=== PATIENT | male | born 1945 | race Caucasian/White ===

== ENCOUNTER → 2017-02-28 | Outpatient (CLI) | payer MEDICARE ==
--- NOTE | 2017-03-05 13:39 | RADONC ---
RADIATION ONCOLOGY CONSULTATION NOTE DATE: 02/28/2017 CHART NUMBER: [id number]. DIAGNOSIS: Cutaneous basal cell carcinoma. STAGE: I, T1N0M0. ECOG PERFORMANCE STATUS: Zero. CONSULTATION NOTE: Mr. De León is a very pleasant, 71-year-old white male with the diagnosis what appears to be a stage I, T1N0M0 basal cell carcinoma, nodular and infiltrative types of his right distal pretibial region who is presenting to us today status post excision for consideration of postoperative radiation therapy in attempt to increase the likelihood of achieving local control. HISTORY OF PRESENT ILLNESS: The patient was in his usual state of health but recently noticed two small lesions close to each other over the pretibial region of his right leg. On 01/23/2017, the patient underwent resection of both areas. Pathology revealed a basal cell carcinoma, nodular an infiltrating type which extended into the deep tissue managed. The skin specimen measured 0.6 cm x 0.5 cm x 0.2 cm. The second site showed the top of an atypical cystic squamous proliferation. The lesion extended to the deep tissue margin. There was concern for a keratoacanthoma. No actual malignancy was seen. The patient has done well since surgery and is now presenting for discussion of postoperative radiation therapy in the likelihood of achieving local control. PAST MEDICAL HISTORY: The patient's past medical history is positive for urinary tract infections, heart disease, thyroid problems, aortic valve replacement, open heart surgery, and hepatitis. ALLERGIES: The patient has NO KNOWN DRUG ALLERGIES. SOCIAL HISTORY: The patient had smoked half-a-pack of cigarettes per day for over 10 years. He quit 30 years or so ago. He drinks alcohol socially. FAMILY HISTORY: The patient's family history is negative for skin cancers or other malignancies. REVIEW OF SYSTEMS: The patient's review of systems is positive for some slowly increasing weight gain. He has some hearing loss as well as his present skin complaints. It is otherwise noncontributory. Denies nausea, vomiting, fevers, chills, night sweats, diplopia, headaches, anxiety or depression, anorexia, weight loss, visual disturbances, chest pain, urinary or bowel difficulties, bone pain, or neurological problems. PHYSICAL EXAMINATION: The patient is a well-developed, well-nourished male in no acute distress. HEENT exam is normocephalic, atraumatic. Extraocular movements are intact. There is no palpable cervical, supraclavicular, infraclavicular, axillary, or inguinal lymphadenopathy present. Lungs are clear to auscultation and percussion. Heart has a regular rate and rhythm. Abdomen is benign with no hepatosplenomegaly, masses, or tenderness. Rectal examination reveals a normal anal sphincter tone. Skeletal examination reveals no tenderness to pressure or percussion of the bony skeleton. Extremities reveal no clubbing, cyanosis, or edema. Neurologic exam is grossly intact, as is the remainder of the physical examination. Examination of the patient's skin shows two small surgical scars present over his right pretibial area consistent with his above history. ASSESSMENT: Clearly the patient is a candidate for postoperative radiation therapy and I so informed him. I have discussed with the patient in detail the potential benefits as well as possible acute and chronic sequelae of external beam radiation therapy. We have discussed logistics of treatment planning, simulation and subsequent fractionated daily radiation treatments. I have scheduled the patient for the next available simulation slot and radiation treatments will begin subsequently. Thank you for allowing us to participate in the care of this very pleasant gentleman. If I could be of any further assistance or provide you with any information, please feel free to contact me at anytime. As always, warm regards. cc: Aric Cornelius MD cc: MD Eddie Blank MD Anthony Scalzo, MD
== END ==
LOC: M ONCR 13:05
PROVIDERS: ATTEND Radiology Radiation Oncology
DX: C44.711 Basal cell carcinoma of skin of unspecified lower limb, including hip (principal)

== ENCOUNTER 2017-03-18 14:07 | Outpatient (RCR) | payer MEDICARE | END 2017-04-10 | LOC: M ONCR 14:07 | DX: C44.702 Unspecified malignant neoplasm of skin of right lower limb, including hip (principal) | CPT/HCPCS: 77300 ==

== ENCOUNTER 2017-04-11 11:49 | Outpatient (RCR) | payer MEDICARE | END 2017-05-08 | LOC: M ONCR 11:49 | DX: C44.702 Unspecified malignant neoplasm of skin of right lower limb, including hip (principal) | CPT/HCPCS: 77336 ==

== ENCOUNTER → 2017-07-04 | Outpatient (CLI) | payer MEDICARE | LOC: M ONCR 09:14 | DX: C44.702 Unspecified malignant neoplasm of skin of right lower limb, including hip (principal) ==

== ENCOUNTER → 2018-07-07 | Outpatient (REF) | payer MEDICARE ==
[2018-07-07 11:56] LABS: BASO % 0.6 % (0.0-1.0); EOS # 0.2 10^3/uL (0.0-0.50); EOS % 3.5 % (0.0-3.0); HEMATOCRIT 37.2 % (42.0-52.0); HEMOGLOBIN 12.4 g/dl (13.5-17.5); LYMPH % 19.8 % (24.0-44.0); MEAN CORPUSCULAR HEMOGLOBIN 31.2 pg (27.0-33.0); MEAN CORPUSCULAR HGB CONC 33.3 g/dl (32.0-36.5); MEAN CORPUSCULAR VOLUME 93.5 fl (80.0-96.0); MONO # 0.5 10^3/uL (0.0-0.8); MONO % 10.1 % (0.0-5.0); NEUTROPHILS # 3.4 10^3/uL (1.8-7.7); NEUTROPHILS % 65.6 % (36.0-66.0); PLATELET COUNT, AUTOMATED 152 10^3/uL (150-450); RED BLOOD COUNT 3.98 10^6/uL (4.30-6.10); WHITE BLOOD COUNT 5.2 10^3/uL (4.0-10.0)
[2018-07-07 12:07] LABS: ALBUMIN 3.9 GM/DL (3.2-5.2); ALT/SGPT 102 U/L (12-78); BILIRUBIN,DIRECT 0.1 MG/DL (0.0-0.2); BILIRUBIN,TOTAL 0.4 MG/DL (0.2-1.0); CREATININE FOR GFR 1.16 MG/DL (0.70-1.30); GLOMERULAR FILTRATION RATE > 60.0 (>42); TOTAL PROTEIN 7.3 GM/DL (6.4-8.2)
== END ==
LOC: M SHH 11:14
PROVIDERS: ATTEND Internal Medicine Infectious Disease
DX: R35.0 Frequency of micturition (principal)

== ENCOUNTER → 2018-07-14 | Outpatient (REF) | payer MEDICARE ==
[2018-07-14 12:56] LABS: APPEARANCE, URINE CLEAR (CLEAR); BACTERIA, URINE AUTO NEGATIVE (NEGATIVE); BILIRUBIN, URINE AUTO NEGATIVE (NEGATIVE); BLOOD, URINE BLOOD NEGATIVE (NEGATIVE); COLOR, URINE YELLOW (YELLOW); GLUCOSE, URINE (UA) AUTO NEGATIVE (NEGATIVE); KETONE, URINE AUTO NEGATIVE (NEGATIVE); LEUKOCYTE ESTERASE, URINE AUTO NEGATIVE (NEGATIVE); NITRITE, URINE AUTO NEGATIVE (NEGATIVE); PROTEIN, URINE AUTO NEGATIVE (NEGATIVE); RBC, URINE AUTO 0 /HPF (0-3); SPECIFIC GRAVITY URINE AUTO 1.008 (1.002-1.035); SQUAMOUS EPITHELIAL CELL UR AU 0 /HPF (0-6); UROBILINOGEN, URINE AUTO 0.2 mg/dL (0.0-2.0); WBC, URINE AUTO 0 /HPF (0-3)
[2018-07-14 12:56] LABS: BASO % 0.7 % (0.0-1.0); EOS # 0.2 10^3/uL (0.0-0.50); EOS % 3.3 % (0.0-3.0); HEMATOCRIT 39.7 % (42.0-52.0); HEMOGLOBIN 13.6 g/dl (13.5-17.5); LYMPH # 1.4 10^3/uL (1.5-4.5); LYMPH % 23.8 % (24.0-44.0); MEAN CORPUSCULAR HEMOGLOBIN 31.6 pg (27.0-33.0); MEAN CORPUSCULAR HGB CONC 34.3 g/dl (32.0-36.5); MEAN CORPUSCULAR VOLUME 92.1 fl (80.0-96.0); MONO # 0.7 10^3/uL (0.0-0.8); MONO % 11.3 % (0.0-5.0); NEUTROPHILS # 3.5 10^3/uL (1.8-7.7); NEUTROPHILS % 60.6 % (36.0-66.0); PLATELET COUNT, AUTOMATED 185 10^3/uL (150-450); RED BLOOD COUNT 4.31 10^6/uL (4.30-6.10); WHITE BLOOD COUNT 5.8 10^3/uL (4.0-10.0)
[2018-07-14 13:20] LABS: ALBUMIN 4.4 GM/DL (3.2-5.2); ALT/SGPT 61 U/L (12-78); BILIRUBIN,DIRECT 0.2 MG/DL (0.0-0.2); BILIRUBIN,TOTAL 0.6 MG/DL (0.2-1.0); CREATININE FOR GFR 1.15 MG/DL (0.70-1.30); GLOMERULAR FILTRATION RATE > 60.0 (>42); TOTAL PROTEIN 8.2 GM/DL (6.4-8.2)
== END ==
LOC: M SHH 12:09
PROVIDERS: ATTEND Internal Medicine Infectious Disease
DX: N41.1 Chronic prostatitis (principal); N39.0 Urinary tract infection, site not specified; B96.89 Other specified bacterial agents as the cause of diseases classified elsewhere

== ENCOUNTER → 2018-07-21 | Outpatient (REF) | payer MEDICARE ==
[2018-07-21 15:05] LABS: BASO % 0.6 % (0.0-1.0); EOS # 0.2 10^3/uL (0.0-0.50); EOS % 3.3 % (0.0-3.0); HEMATOCRIT 35.5 % (42.0-52.0); HEMOGLOBIN 12.2 g/dl (13.5-17.5); LYMPH # 1.1 10^3/uL (1.5-4.5); LYMPH % 21.5 % (24.0-44.0); MEAN CORPUSCULAR HGB CONC 34.4 g/dl (32.0-36.5); MEAN CORPUSCULAR VOLUME 90.1 fl (80.0-96.0); MONO # 0.6 10^3/uL (0.0-0.8); MONO % 10.9 % (0.0-5.0); NEUTROPHILS # 3.3 10^3/uL (1.8-7.7); NEUTROPHILS % 63.5 % (36.0-66.0); PLATELET COUNT, AUTOMATED 187 10^3/uL (150-450); RED BLOOD COUNT 3.94 10^6/uL (4.30-6.10); WHITE BLOOD COUNT 5.2 10^3/uL (4.0-10.0)
[2018-07-21 15:37] LABS: ALBUMIN 3.8 GM/DL (3.2-5.2); ALT/SGPT 40 U/L (12-78); BILIRUBIN,DIRECT 0.1 MG/DL (0.0-0.2); BILIRUBIN,TOTAL 0.5 MG/DL (0.2-1.0); CREATININE FOR GFR 1.22 MG/DL (0.70-1.30); GLOMERULAR FILTRATION RATE > 60.0 (>42); TOTAL PROTEIN 7.9 GM/DL (6.4-8.2)
== END ==
LOC: M SHH 14:53
PROVIDERS: ATTEND Internal Medicine Infectious Disease
DX: N41.0 Acute prostatitis (principal)

== ENCOUNTER → 2018-07-28 | Outpatient (REF) | payer MEDICARE ==
[2018-07-28 14:52] LABS: BASO % 0.7 % (0.0-1.0); EOS # 0.2 10^3/uL (0.0-0.50); EOS % 3.5 % (0.0-3.0); HEMATOCRIT 36.6 % (42.0-52.0); HEMOGLOBIN 12.5 g/dl (13.5-17.5); LYMPH # 1.1 10^3/uL (1.5-4.5); LYMPH % 20.9 % (24.0-44.0); MEAN CORPUSCULAR HGB CONC 34.2 g/dl (32.0-36.5); MEAN CORPUSCULAR VOLUME 90.8 fl (80.0-96.0); MONO # 0.5 10^3/uL (0.0-0.8); MONO % 9.5 % (0.0-5.0); NEUTROPHILS # 3.5 10^3/uL (1.8-7.7); NEUTROPHILS % 65.2 % (36.0-66.0); PLATELET COUNT, AUTOMATED 185 10^3/uL (150-450); RED BLOOD COUNT 4.03 10^6/uL (4.30-6.10); WHITE BLOOD COUNT 5.4 10^3/uL (4.0-10.0)
[2018-07-28 18:42] LABS: ALT/SGPT 36 U/L (12-78); BILIRUBIN,DIRECT 0.1 MG/DL (0.0-0.2); BILIRUBIN,TOTAL 0.5 MG/DL (0.2-1.0); CREATININE FOR GFR 1.12 MG/DL (0.70-1.30); GLOMERULAR FILTRATION RATE > 60.0 (>42); TOTAL PROTEIN 7.6 GM/DL (6.4-8.2)
== END ==
LOC: M LAB REF 14:30
PROVIDERS: ATTEND Internal Medicine Infectious Disease
DX: Z51.81 Encounter for therapeutic drug level monitoring (principal); Z79.2 Long term (current) use of antibiotics

== ENCOUNTER → 2018-08-05 | Outpatient (REF) | payer MEDICARE ==
[2018-08-05 19:38] LABS: ALT/SGPT 40 U/L (12-78); BILIRUBIN,DIRECT 0.1 MG/DL (0.0-0.2); BILIRUBIN,TOTAL 0.6 MG/DL (0.2-1.0); GLOMERULAR FILTRATION RATE > 60.0 (>42); TOTAL PROTEIN 8.1 GM/DL (6.4-8.2)
[2018-08-05 20:08] LABS: BASO % 0.4 % (0.0-1.0); EOS # 0.2 10^3/uL (0.0-0.50); EOS % 4.1 % (0.0-3.0); HEMATOCRIT 39.3 % (42.0-52.0); HEMOGLOBIN 13.3 g/dl (13.5-17.5); LYMPH # 1.1 10^3/uL (1.5-4.5); LYMPH % 20.5 % (24.0-44.0); MEAN CORPUSCULAR HGB CONC 33.8 g/dl (32.0-36.5); MEAN CORPUSCULAR VOLUME 94.5 fl (80.0-96.0); MONO # 0.5 10^3/uL (0.0-0.8); MONO % 10.6 % (0.0-5.0); NEUTROPHILS # 3.3 10^3/uL (1.8-7.7); PLATELET COUNT, AUTOMATED 164 10^3/uL (150-450); RED BLOOD COUNT 4.16 10^6/uL (4.30-6.10); WHITE BLOOD COUNT 5.1 10^3/uL (4.0-10.0)
== END ==
LOC: M SHH 18:10
PROVIDERS: ATTEND Internal Medicine Infectious Disease
DX: N41.1 Chronic prostatitis (principal)

== ENCOUNTER → 2018-08-11 | Outpatient (CLI) | payer MEDICARE ==
[2018-08-11 09:55] LABS: BASO % 0.4 % (0.0-1.0); EOS # 0.2 10^3/uL (0.0-0.50); EOS % 3.5 % (0.0-3.0); HEMATOCRIT 37.3 % (42.0-52.0); HEMOGLOBIN 12.9 g/dl (13.5-17.5); LYMPH % 19.6 % (24.0-44.0); MEAN CORPUSCULAR HGB CONC 34.6 g/dl (32.0-36.5); MEAN CORPUSCULAR VOLUME 92.6 fl (80.0-96.0); MONO # 0.5 10^3/uL (0.0-0.8); MONO % 9.6 % (0.0-5.0); NEUTROPHILS # 3.5 10^3/uL (1.8-7.7); NEUTROPHILS % 66.7 % (36.0-66.0); PLATELET COUNT, AUTOMATED 153 10^3/uL (150-450); RED BLOOD COUNT 4.03 10^6/uL (4.30-6.10); WHITE BLOOD COUNT 5.2 10^3/uL (4.0-10.0)
[2018-08-11 10:28] LABS: ALBUMIN 3.9 GM/DL (3.2-5.2); ALT/SGPT 34 U/L (12-78); BILIRUBIN,DIRECT 0.1 MG/DL (0.0-0.2); BILIRUBIN,TOTAL 0.6 MG/DL (0.2-1.0); CREATININE FOR GFR 1.12 MG/DL (0.70-1.30); GLOMERULAR FILTRATION RATE > 60.0 (>42); TOTAL PROTEIN 7.7 GM/DL (6.4-8.2)
== END ==
LOC: M LAB 08:40
PROVIDERS: ATTEND Internal Medicine Infectious Disease
DX: N41.0 Acute prostatitis (principal)

== ENCOUNTER → 2018-08-11 | Outpatient (REF) | payer MEDICARE | LOC: M LAB REF 15:37 | DX: N41.1 Chronic prostatitis (principal) ==

== ENCOUNTER → 2018-08-11 | Outpatient (REF) | payer MEDICARE ==
[2018-08-11 16:14] LABS: INR 3.16; PROTHROMBIN TIME 33.2 SECONDS (12.1-14.4)
== END ==
LOC: M LAB REF 15:49
PROVIDERS: ATTEND Internal Medicine Interventional Cardiology
DX: Z79.01 Long term (current) use of anticoagulants (principal)

== ENCOUNTER → 2018-08-13 | Outpatient (CLI) | payer MEDICARE ==
[2018-08-13 08:51] LABS: INR 3.17; PROTHROMBIN TIME 33.2 SECONDS (12.1-14.4)
== END ==
LOC: M LAB 08:07
PROVIDERS: ATTEND Internal Medicine Interventional Cardiology
DX: Z79.01 Long term (current) use of anticoagulants (principal)

== ENCOUNTER → 2018-09-22 | Outpatient (CLI) | payer MEDICARE ==
[~2018-09-22] MED LIST: ACET25TA12 PO; ALLE1TAB23 PO; DICL500C PO; FINA5TAB2 PO; GLUCTAB6 PO; LEVO200T4 PO; LEVO25TA5 PO; METO1TAB7 PO; NITR100C2 PO; TAMS1CAP17 PO; VITMTA PO; WARF-23 PO
[2018-09-22 09:15] LABS: APPEARANCE, URINE CLEAR (CLEAR); BACTERIA, URINE AUTO NEGATIVE (NEGATIVE); BILIRUBIN, URINE AUTO NEGATIVE (NEGATIVE); BLOOD, URINE BLOOD NEGATIVE (NEGATIVE); COLOR, URINE YELLOW (YELLOW); GLUCOSE, URINE (UA) AUTO NEGATIVE (NEGATIVE); KETONE, URINE AUTO NEGATIVE (NEGATIVE); LEUKOCYTE ESTERASE, URINE AUTO NEGATIVE (NEGATIVE); NITRITE, URINE AUTO NEGATIVE (NEGATIVE); PROTEIN, URINE AUTO NEGATIVE (NEGATIVE); RBC, URINE AUTO 0 /HPF (0-3); SPECIFIC GRAVITY URINE AUTO 1.005 (1.002-1.035); SQUAMOUS EPITHELIAL CELL UR AU 0 /HPF (0-6); UROBILINOGEN, URINE AUTO 0.2 mg/dL (0.0-2.0); WBC, URINE AUTO 1 /HPF (0-3)
== END ==
LOC: M LAB 08:15
PROVIDERS: ATTEND Internal Medicine Infectious Disease
DX: N41.1 Chronic prostatitis (principal)

== ENCOUNTER → 2018-11-12 | Outpatient (CLI) | payer MEDICARE ==
[2018-11-12 14:09] LABS: APPEARANCE, URINE CLEAR (CLEAR); BACTERIA, URINE AUTO NEGATIVE (NEGATIVE); BILIRUBIN, URINE AUTO NEGATIVE (NEGATIVE); BLOOD, URINE BLOOD NEGATIVE (NEGATIVE); COLOR, URINE YELLOW (YELLOW); GLUCOSE, URINE (UA) AUTO NEGATIVE (NEGATIVE); KETONE, URINE AUTO NEGATIVE (NEGATIVE); LEUKOCYTE ESTERASE, URINE AUTO NEGATIVE (NEGATIVE); NITRITE, URINE AUTO NEGATIVE (NEGATIVE); PROTEIN, URINE AUTO NEGATIVE (NEGATIVE); RBC, URINE AUTO 1 /HPF (0-3); SPECIFIC GRAVITY URINE AUTO 1.011 (1.002-1.035); SQUAMOUS EPITHELIAL CELL UR AU 1 /HPF (0-6); UROBILINOGEN, URINE AUTO 0.2 mg/dL (0.0-2.0); WBC, URINE AUTO 1 /HPF (0-3)
== END ==
LOC: M LAB 13:16
PROVIDERS: ATTEND Internal Medicine Infectious Disease
DX: N41.1 Chronic prostatitis (principal)

== ENCOUNTER → 2018-12-15 | Outpatient (CLI) | payer MEDICARE ==
[2018-12-15 11:59] LABS: APPEARANCE, URINE CLEAR (CLEAR); BACTERIA, URINE AUTO NEGATIVE (NEGATIVE); BILIRUBIN, URINE AUTO NEGATIVE (NEGATIVE); BLOOD, URINE BLOOD NEGATIVE (NEGATIVE); COLOR, URINE YELLOW (YELLOW); GLUCOSE, URINE (UA) AUTO NEGATIVE (NEGATIVE); KETONE, URINE AUTO NEGATIVE (NEGATIVE); LEUKOCYTE ESTERASE, URINE AUTO NEGATIVE (NEGATIVE); MUCUS, URINE SMALL (NEGATIVE); NITRITE, URINE AUTO NEGATIVE (NEGATIVE); PROTEIN, URINE AUTO NEGATIVE (NEGATIVE); RBC, URINE AUTO 1 /HPF (0-3); SPECIFIC GRAVITY URINE AUTO 1.018 (1.002-1.035); SQUAMOUS EPITHELIAL CELL UR AU 0 /HPF (0-6); UROBILINOGEN, URINE AUTO 0.2 mg/dL (0.0-2.0); WBC, URINE AUTO 2 /HPF (0-3)
== END ==
LOC: M LAB 10:50
PROVIDERS: ATTEND Internal Medicine Infectious Disease
DX: N41.1 Chronic prostatitis (principal)

== ENCOUNTER 2019-02-25 13:45 | Inpatient (IN) | payer MEDICARE ==
[~2019-02-25] VITALS: Ht 193 cm; Wt 105.0 kg
[2019-02-25] MEDS ORDERED: LEVO25TA5 PO (14:01)
[2019-02-25] MEDS ORDERED: FINA5TAB2 PO (14:01)
[2019-02-25] MEDS ORDERED: METO1TAB7 PO (14:01)
[2019-02-25] MEDS ORDERED: WARF-23 PO ×2 (14:01→18:08)
[2019-02-25] MEDS ORDERED: DICL500C PO (14:01)
[2019-02-25] MEDS ORDERED: LEVO200T4 PO (14:01)
[2019-02-25] MEDS ORDERED: TAMS1CAP17 PO (14:01)
[2019-02-25 14:53] LABS: GLUCOSE, URINE (UA) MANUAL OBSCURED mg/dL (NEGATIVE); KETONE, URINE MANUAL OBSCURED mg/dL (NEGATIVE)
[2019-02-25 14:54] LABS: BILIRUBIN, URINE MANUAL OBSCURED (NEGATIVE); UROBILINOGEN, URINE MANUAL OBSCURED mg/dl (NORMAL)
[2019-02-25 14:55] LABS: HEMATOCRIT 36.1 % (42.0-52.0); HEMOGLOBIN 12.1 g/dl (13.5-17.5); MEAN CORPUSCULAR HEMOGLOBIN 31.5 pg (27.0-33.0); MEAN CORPUSCULAR HGB CONC 33.5 g/dl (32.0-36.5); PLATELET COUNT, AUTOMATED 173 10^3/uL (150-450); RED BLOOD COUNT 3.84 10^6/uL (4.30-6.10)
[2019-02-25 14:57] LABS: RBC, URINE TNTC /hpf (0-3)
[2019-02-25] MEDS ORDERED: MORPHINE 4 MG/ML 1ML VIAL/SYRINGE (J2270) IM ONE (15:00)
[2019-02-25] MEDS ORDERED: ONDANSETRON 4 MG ORAL DISINTEGRATING TAB (Q0162 PER 1MG) PO ONE (15:00)
[2019-02-25 15:07] LABS: INR 2.75
[2019-02-25 15:20] LABS: CREATININE FOR GFR 1.28 MG/DL (0.70-1.30); GLOMERULAR FILTRATION RATE 58.8 (>42); POTASSIUM SERUM 4.2 MEQ/L (3.5-5.1)
[2019-02-25] MEDS ORDERED: ISOVUE-370 76% 100ML VIAL (Q9967) As Ordered ONE (17:35)
--- NOTE | 2019-02-25 17:38 | SMCUROLCON ---
Urology Consultation General Date of Consultation 02/25/19 Reason For Consultation This patient is seen for Blood In Urine. History of Present Illness The patient is a 73 y/o M w/ a PMH significant for mechanical heart valve replacement (chronically on coumadin), pacemaker, hypothyroidism, BPH (s/p TURP several years ago), recurrent UTIs, and gross hematuria, presenting to the ER w/ gross hematuria x 1 day and inability to void. The patient notes that he has had a few episodes of hematuria previously, the most recent was 2 wks ago. That lasted for a few hours and stopped. He has been followed by urology at [facility] urology in [place] and at [facility]. He notes that his last cystoscopy was about 1 year ago. He also notes that for a previous episode of gross hematuria he was taken go the OR in [place] to cauterize inside the bladder. He denies a hx of bladder tumors or kidney stones. He has been followed mainly for obstructive urinary symptoms and UTIs recently and noted that we was scheduled for a HOLEP at [facility] several months ago but this was cancelled as he had not been off of his coumadin long enough. He notes that the surgery was not rescheduled. On presentation to the ER he had a significant amount of suprapubic discomfort. This improved w/ catheter placement. He is a former smoker, but notes that he only smoked a very small amount several years ago. He has no prior history of pelvic radiation. He notes that when he had UTIs in the past, he usually had no symptoms. His last dose of coumadin was yesterday evening. Past Medical History Medical History see HPI Surgical Hstory see HPI Allergies Allergies: Coded Allergies: No Known Allergies (Unverified , 02/25/19) Review of Systems General: Reports: Normal Appetite; Denies: Fatigue, Malaise Constitutional: Denies: Fever, Chills, Sweats, Weakness, Malaise Pulmonary: Denies: Dyspnea, Cough Cardiovascular: Denies Chest Pain, Denies Palpitations Gastrointestinal: Denies: Nausea, Vomiting, Abdominal Pain Genitourinary: Reports: Hematuria, Retention Musculoskeletal: Denies: Neck Pain, Back Pain Neurological: Denies: Weakness, Numbness, Incoordination, Change in Speech Psych: Reports: Mood Normal; Denies: Anxiety, Depression Physical Examination General Exam: Alert, Cooperative, No Acute Distress Chest Exam: Normal air movement Heart Exam: Rate Normal Abdomen Exam: Soft Male Exam 3-way catheter in place, draining dark red blood Skin Exam: Nl turgor and temperature Neuro Exam: Normal Speech Psych Exam: Mental status NL, Mood NL Vital Signs/I&O Vital Signs Date Time Temp Pulse Resp B/P (MAP) Pulse Ox O2 Delivery O2 Flow Rate FiO2 02/25/19 15:52 02/25/19 15:14 18 99 Room Air 02/25/19 13:46 97.8 76 Laboratory Data 24H Labs Laboratory Tests 2 02/25/19 14:32: Nucleated Red Blood Cells % (auto) 0.0, Prothrombin Time 29.0H, Prothromb Time International Ratio 2.75, Anion Gap 5L, Glomerular Filtration Rate 58.8, Calcium Level 9.0 02/25/19 14:33: Urine Color (ELIZABETH) REDH, Urine Appearance (ELIZABETH) TURBIDH, Urine pH (ELIZABETH) OBSCUREDH, Urine Specific [place] (ELIZABETH) 1.022, Urine Protein OBSCUREDH, Bedside Urine Glucose (UA) OBSCUREDH, Bedside Urine Ketones (LAB) OBSCUREDH, Bedside Urine Blood POSITIVEH, Bedside Urine Nitrite (LAB) OBSCUREDH, Bedside Urine Bilirubin (LAB) OBSCUREDH, Bedside Urine Urobilinogen (LAB) OBSCUREDH, Bedside Urine Leukocyte Esterase (L OBSCUREDH, Urine Sediment Examination UNSPUN, Urine RBC TNTCH, Urine WBC 3-5H, Urine Squamous Epithelial Cells , Urine Bacteria , Urine Hyaline Casts CBC/BMP Laboratory Tests 02/25/19 14:32 Microbiology Microbiology 02/25/19 Urine Culture, Received Pending Assessment This is a 73 y/o M presenting w/ gross hematuria and clot retention. His Hb is at his baseline at 12.1. His INR is 2.75. I manually irrigated his bladder out and got a few small clots out. Once done irrigating, the urine was still light red, indicating that he is likely still actively bleeding. Plan - recommend holding coumadin (the patient called his bog cutter while in the ER and he gave the ok) - patient notes that typically they do not want it held for more than 3 days - continue CBI - make sure that the drip is fast enough so that the urine remains pink or clearer - if concern about a clot obstructing the catheter, turn off CBI and manually irrigate the bladder as needed - send urine for culture and start on empiric abx for now - obtain a CT urogram - please keep patient NPO at midnight for possible OR tomorrow (would take to OR if Hb drops significantly or if the urine does not start clearing up by tomorr ow) GISSELL VASQUEZ MD Feb 25, 2019 17:38
[2019-02-25] MEDS ORDERED: VITMTA PO (18:08)
[2019-02-25] MEDS ORDERED: ALLE1TAB23 PO (18:08)
[2019-02-25] MEDS ORDERED: ACET25TA12 PO (18:08)
[2019-02-25] MEDS ORDERED: GLUCTAB6 PO (18:08)
[2019-02-25 19:12] VITALS: BP 151/81
[2019-02-25] MEDS ORDERED: MORPHINE 4 MG/ML 1ML VIAL/SYRINGE (J2270) IV PRN (19:15)
[2019-02-25] MEDS ORDERED: ONDANSETRON 4MG/2ML VIAL (J2405) IV PRN (19:15)
[2019-02-25] MEDS ORDERED: PIPERACILLIN/TAZOBACTAM SOD 2.25 GM in D5W MINI-BAG PLUS 50 ML IV SCH (19:15)
[2019-02-25] MEDS: METOPROLOL SUCC (TopROL XL) 50MG **XL** TAB PO SCH (21:16)
[2019-02-25] MEDS: PIPERACILLIN/TAZOBACTAM SOD 3.375 GM in D5W MINI-BAG PLUS 50 ML IV SCH (21:16)
[2019-02-25] MEDS: DOCUSATE SODIUM 100 MG CAP PO SCH (21:16)
[2019-02-25] MEDS: DICLOXACILLIN 250 MG CAP PO SCH (23:14)
[2019-02-26] VITALS (8 sets, daily range): BP systolic 125–159; BP diastolic 68–78
[2019-02-26] MEDS ORDERED: HumaLOG INSULIN (NovoLOG) PER UNIT SC SCH
[2019-02-26] MEDS ORDERED: GLUCAGON FOR INJ 1 MG VIAL (J1610) SC PRN (01:00)
[2019-02-26] MEDS ORDERED: GLUCOSE 4 GM CHEW TABLET PO PRN (01:00)
[2019-02-26] MEDS ORDERED: DEXTROSE 50% 50 ML SYRINGE IV PRN (01:00)
[2019-02-26] MEDS: PIPERACILLIN/TAZOBACTAM SOD 3.375 GM in D5W MINI-BAG PLUS 50 ML IV SCH ×4 (01:39→20:33)
[2019-02-26] MEDS: LEVOTHYROXINE 25MCG TABLET (0.025MG) PO SCH (05:30)
[2019-02-26] MEDS: LEVOTHYROXINE 100MCG TABLET (0.1MG) PO SCH (05:30)
[2019-02-26 06:09] LABS: HEMOGLOBIN 10.9 g/dl (13.5-17.5); MEAN CORPUSCULAR HEMOGLOBIN 31.3 pg (27.0-33.0); MEAN CORPUSCULAR VOLUME 94.8 fl (80.0-96.0); PLATELET COUNT, AUTOMATED 163 10^3/uL (150-450); RED BLOOD COUNT 3.48 10^6/uL (4.30-6.10); WHITE BLOOD COUNT 6.7 10^3/uL (4.0-10.0)
[2019-02-26 06:17] LABS: INR 2.39; PROTHROMBIN TIME 25.9 SECONDS (11.8-14.0)
[2019-02-26 06:36] LABS: BLOOD UREA NITROGEN 17 MG/DL (7-18); CALCIUM LEVEL 8.7 MG/DL (8.8-10.2); CARBON DIOXIDE LEVEL 28 MEQ/L (21-32); CHLORIDE LEVEL 105 MEQ/L (98-107); CREATININE FOR GFR 1.23 MG/DL (0.70-1.30); GLOMERULAR FILTRATION RATE > 60.0 (>42); GLUCOSE, FASTING 101 MG/DL (70-100); POTASSIUM SERUM 3.6 MEQ/L (3.5-5.1); SODIUM LEVEL 138 MEQ/L (136-145)
[2019-02-26] MEDS: FINASTERIDE 5 MG TAB PO SCH (08:15)
[2019-02-26] MEDS: DICLOXACILLIN 250 MG CAP PO SCH ×4 (08:15→23:22)
[2019-02-26] MEDS: TAMSULOSIN 0.4 MG CAP PO SCH (08:15)
[2019-02-26] MEDS: DOCUSATE SODIUM 100 MG CAP PO SCH ×2 (08:15→23:22)
[2019-02-26] MEDS: MULTIVITAMINS/MINERALS THERAP 1 TAB PO SCH (08:16)
--- NOTE | 2019-02-26 08:22 | IPNPDOC ---
Subjective Review oF Systems Chief Complaint The patient is a 73-year-old male admitted with a reason for visit of UTI. Events since Last Encounter Patient required manual irrigation several times o/n for clot retention. He feels well. No n/v. No f/c/ns. Objective Physical Examination General Exam: Alert, Cooperative, No Acute Distress Chest Exam: Normal air movement Heart Exam: Positive: Rate Normal ABDOMEN EXAM: Soft Skin Exam: Nl turgor and temperature Neuro Exam: Normal Gait, Normal Speech Psych Exam: Mental status NL, Mood NL Other physical findings 3-way catheter in place w/ irrigation on moderate drip and pink outflow draining Vital Signs/I&O Vital Signs Date Time Temp Pulse Resp B/P (MAP) Pulse Ox O2 Delivery O2 Flow Rate FiO2 02/26/19 06:00 96.8 50 20 159/71 (100) 94 02/25/19 19:12 Room Air I&O- Last 24 Hours up to 6 AM 02/26/19 06:00 Intake Total 3300 ml Output Total 6500 ml Balance -3200 ml Laboratory Data Labs 24H Laboratory Tests 2 02/25/19 14:32: Nucleated Red Blood Cells % (auto) 0.0, Prothrombin Time 29.0H, Prothromb Time International Ratio 2.75, Anion Gap 5L, Glomerular Filtration Rate 58.8, Calcium Level 9.0 02/25/19 14:33: Urine Color (ELIZABETH) REDH, Urine Appearance (ELIZABETH) TURBIDH, Urine pH (ELIZABETH) OBSCUREDH, Urine Specific [place] (ELIZABETH) 1.022, Urine Protein OBSCUREDH, Bedside Urine Glucose (UA) OBSCUREDH, Bedside Urine Ketones (LAB) OBSCUREDH, Bedside Urine Blood POSITIVEH, Bedside Urine Nitrite (LAB) OBSCUREDH, Bedside Urine Bilirubin (LAB) OBSCUREDH, Bedside Urine Urobilinogen (LAB) OBSCUREDH, Bedside Urine Leukocyte Esterase (L OBSCUREDH, Urine Sediment Examination UNSPUN, Urine RBC TNTCH, Urine WBC 3-5H, Urine Squamous Epithelial Cells , Urine Bacteria , Urine Hyaline Casts 02/26/19 05:47: Nucleated Red Blood Cells % (auto) 0.0, Prothrombin Time 25.9H, Prothromb Time International Ratio 2.39, Anion Gap 5L, Glomerular Filtration Rate > 60.0, Calcium Level 8.7L, Magnesium Level 2.0 02/26/19 06:11: Bedside Glucose (Misc Panel) 101 CBC/BMP Laboratory Tests 02/25/19 14:32 02/26/19 05:47 FSBS Laboratory Tests Test 02/26/19 06:11 Range/Units Bedside Glucose (Misc Panel) 101 83-110 MG/DL Microbiology Microbiology 02/25/19 Urine Culture, Received Pending Assessment/Plan Date Seen The patient was seen on 02/26/19. Patient Summary This is a 73 y/o M w/ gross hematuria and clot retention. His Hb has trended down a little to 10.9 from 12.1 yesterday. Vitals are stable. INR is now 2.39 from 2.75 yesterday evening. Plan/VTE VTE Prophylaxis Ordered?: Yes VTE Exclusion Mechanical Proph: N/A:VTE Prophy Ordered VTE Exclusion Pharmacological: Active Bleeding Plan/Urinary Catheter Reason for insertion/continuin: Acute obstruct/retention Plan - cont CBI and manually irrigate as needed - agree w/ broad spectrum abx until culture results - hold coumadin - plan for OR later today for cystoscopy and clot evacuation - NPO until surgery GISSELL VASQUEZ MD Feb 26, 2019 08:22
[2019-02-26] MEDS ORDERED: NS 1,000 ML IV ONE (08:30)
--- NOTE | 2019-02-26 18:16 | HPEPDOC ---
[facility] Medical History & Physical Date of Admission Feb 25, 2019 Date of Service: Feb 25, 2019 Attending Physician: MISSY AVERY MD History and Physical CHIEF COMPLAINT: blood in urine HISTORY OF PRESENT ILLNESS: Qamar De León is a 73 YO M with H aortic valve replacement on coumadin, AF s/p pacemaker/AICD, who presents with 1 day hematuria. He first noticed blood in his urine last night prior to going to bed around 9pm. At that time, his urine was bright red. This morning he continued to have hematuria and had difficulty urinating due to clots that he was unable to pass, causing him to retain urine. He states that this happened almost 3-4 weeks ago where he had bloody urine, passed some clots, and it went away on its own. He did not seek medical treatment at that time. He has been on Coumadin since his aortic valve replacement in 1997 and his INR checks are managed by his assistant store manager operations in [place]. Recently he was found to have INR of 3.2 and his Coumadin dose was increased. Otherwise, he has been in good state of health recently, has been taking all his medication as prescribed, has not been sick or has not had any sick contacts. PAST MEDICAL HISTORY: 1., Atrial fibrillation, status post pacemaker and AICD 2. History of hematuria 3. History of vertebral body osteomyelitis 4. History of myocarditis 5. Hypothyroidism PAST SURGICAL HISTORY: 1. Aortic valve replacement 1997 2. Pacemaker AICD placement, replacement due to infected wires 3. TURP 2002 4. 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 REVIEW OF SYSTEMS: CONSTITUTIONAL: Feels well. No fever or chills HEENT: denies vision changes, no sinus problems, denies any trouble swallowing CARDIOVASCULAR: no palpitations RESPIRATORY: Denies any shortness of breath GENITOURINARY: Reports some difficulty urinating, hesitation, retention of urine MUSCULOSKELETAL: Denies any joint/muscle pain GASTROINTESTINAL: Denies abdominal pain, no nausea/vomiting/diarrhea SKIN: No new rashes or lesions NEUROLOGICAL: No loss of sensation PSYCHIATRIC: Reports normal mood, no delusions or hallucinations ENDOCRINE: No hot/cold intolerance HEMATOLOGIC/LYMPHATIC: No easy bruising, no lumps/bumps ALLERGIC/IMMUNOLOGIC: No sinus symptoms HOME MEDICATIONS: Please see below. PHYSICAL EXAMINATION: VITAL SIGNS: Please see below. GENERAL APPEARANCE: Laying in bed, appears stated age, no acute distress, calm, cooperative HEENT: EOMI, PERRLA, neck is supple with no thyromegaly or lymphadenopathy RESPIRATORY: Lungs are clear to auscultation bilaterally with no adventitious breath sounds appreciated CARDIOVASCULAR: no JVD, RRR,no murmurs/rubs/gallops ABDOMEN: Slightly tender to palpation in the suprapubic region, no masses or organomegaly, bowel sounds are present and are normal EXTREMITIES: no clubbing, cyanosis or edema noted NEUROLOGICAL: No obvious focal deficits PSYCHIATRIC: normal mood/affect Skin: No rashes or ulcers, some telangiectasias on face LN: No significant cervical or inguinal lymphadenopathy LABORATORY DATA: See below. IMAGING: none MICROBIOLOGY: Please see below. ASSESSMENT: This is a 73 YO M with history of aortic valve replacement on chronic coumadin , who presents with 1 day hematuria and urinary retention secondary to blood clots, likely caused by his chronic anticoagulation. He was seen by urology in ED, with plan for possible cystoscopy tomorrow. PLAN: 1. Hematuria: likely 2/2 anticoagulation -NPO for procedure tomorrow -Triple lumen catheter placed in ED with continuous bladder irrigation -Per urology recommendation, if concern about a clot obstructing the catheter, turn off continuous bladder irrigation and manually irrigate the bladder as needed -CT urogram ordered and pending -Will start empiric antibiotic Zosyn -Holding Coumadin tonight -H/H stable. Type and screen has been completed. Will consider transfusion if hemoglobin drops below 7. 2. Hx aortic valve replacement: -Holding Coumadin for active bleed and for procedure tomorrow -Will recheck INR in a.m. and if it is less than 2.0 will start the patient on heparin drip 3. BPH: -Continue Finasteride, Tamsulosin 4. Hypothyroidism: -Continue Levothyroxine 5. History of Osteomyelitis: -Patient is currently taking care of by [facility] physicians. He is on dicloxacillin 500 mg 4 times a day for prophylaxis. Will continue home dose DVT ppx: holding DISPO: pending possible procedure tomorrow. Vital Signs Vital Signs Date Time Temp Pulse Resp B/P (MAP) Pulse Ox O2 Delivery O2 Flow Rate FiO2 02/25/19 18:22 98.2 02/25/19 15:52 02/25/19 15:14 18 99 Room Air 02/25/19 13:46 76 Laboratory Data Labs 24H Laboratory Tests 2 02/25/19 14:32: Nucleated Red Blood Cells % (auto) 0.0, Prothrombin Time 29.0H, Prothromb Time International Ratio 2.75, Anion Gap 5L, Glomerular Filtration Rate 58.8, Calcium Level 9.0 02/25/19 14:33: Urine Color (ELIZABETH) REDH, Urine Appearance (ELIZABETH) TURBIDH, Urine pH (ELIZABETH) OBSCUREDH, Urine Specific [place] (ELIZABETH) 1.022, Urine Protein OBSCUREDH, Bedside Urine Glucose (UA) OBSCUREDH, Bedside Urine Ketones (LAB) OBSCUREDH, Bedside Urine Blood POSITIVEH, Bedside Urine Nitrite (LAB) OBSCUREDH, Bedside Urine Bilirubin (LAB) OBSCUREDH, Bedside Urine Urobilinogen (LAB) OBSCUREDH, Bedside Urine Leukocyte Esterase (L OBSCUREDH, Urine Sediment Examination UNSPUN, Urine RBC TNTCH, Urine WBC 3-5H, Urine Squamous Epithelial Cells , Urine Bacteria , Urine Hyaline Casts CBC/BMP Laboratory Tests 02/25/19 14:32 Microbiology Microbiology 02/25/19 Urine Culture, Received Pending Home Medications Scheduled Dicloxacillin Sodium (Dicloxacillin Sodium) 500 Mg Capsule, 500 MG PO QID Fexofenadine HCl (Fexofenadine HCl) 180 Mg Tablet, 180 MG PO DAILY Finasteride (Finasteride) 5 Mg Tablet, 5 MG PO DAILY Gluc Amaro/Chondro Amaro A/Vit C/Mn (Glucosamine Chondroitin Tab) 1 Each Tablet, 1 TAB PO DAILY Levothyroxine Sodium (Levothyroxine Sodium) 200 Mcg Tablet, 200 MCG PO DAILY TOTAL DOSE 225MCG Levothyroxine Sodium (Levothyroxine Sodium) 25 Mcg Tablet, 25 MCG PO DAILY TOTAL DOSE 25MCG Metoprolol Succinate (Metoprolol Succinate) 50 Mg Tab.er.24h, 50 MG PO QHS Multivitamins (Thera M Plus Tablet) 1 Each Tablet, 1 TAB PO DAILY Tamsulosin Hcl (Tamsulosin HCl) 0.4 Mg Capsule, 0.8 MG PO DAILY Warfarin Sodium (Warfarin Sodium) 5 Mg Tablet, 15 MG PO QWEEK IVETTE EVENINGS Warfarin Sodium (Warfarin Sodium) 5 Mg Tablet, 12.5 MG PO 6XWK SUN/MON/SAT/SAT//SAT AT 1700 Scheduled PRN Acetaminophen/Diphenhydramine (Acetaminophen Pm Caplet) 1 Each Tablet, 2 TAB PO QHS PRN for PAIN Allergies Coded Allergies: No Known Allergies (Unverified , 02/25/19) A-FIB/CHADSVASC A-FIB History Current/History of A-Fib/PAF?: Yes Current PO Anticoag Therapy: Yes GME ATTESTATION GME ATTESTATION My faculty preceptor for this patient encounter was physically present during the encounter and was fully available. All aspects of the patient interview, examination, medical decision making process, and medical care plan development were reviewed and approved by the faculty preceptor. The faculty preceptor is aware and concurs with the plan as stated in the body of this note and will attest to such by his/her cosignature. ATTENDING NOTE Patient was seen and examined by me this morning with the residents. Agree with the above assessment and plan LULU OAKLEY MD Feb 25, 2019 19:06 MISSY AVERY MD Feb 27, 2019 10:55
--- NOTE | 2019-02-26 18:23 | IPNPDOC ---
Date Seen The patient was seen on 02/26/19. Progress Note SUBJECTIVE: Patient seen and examined at the bedside this morning. He has no complaints, although overnight he was found to have several clots and needed to be flushed several times. The pain in his suprapubic area has almost nearly resolved. He is anxious to have his procedure today. He denies any abdominal pain, nausea, vomiting, diarrhea, lightheadedness or dizziness at this point. OBJECTIVE PHYSICAL EXAMINATION: VITAL SIGNS: Please see below. GENERAL APPEARANCE: Laying in bed, appears stated age, no acute distress, calm, cooperative HEENT: EOMI, PERRLA, neck is supple with no thyromegaly or lymphadenopathy RESPIRATORY: Lungs are clear to auscultation bilaterally with no adventitious breath sounds appreciated CARDIOVASCULAR: no JVD, RRR,no murmurs/rubs/gallops, mechanical aortic valve can be auscultated in the right upper sternal border ABDOMEN: Slightly tender to palpation in the suprapubic region, no masses or organomegaly, bowel sounds are present and are normal EXTREMITIES: no clubbing, cyanosis or edema noted NEUROLOGICAL: No obvious focal deficits PSYCHIATRIC: normal mood/affect Skin: No rashes or ulcers, some telangiectasias on face LN: No significant cervical or inguinal lymphadenopathy LABORATORY DATA, IMAGING STUDIES, MICROBIOLOGY: Please see below. Echocardiogram: None DVT prophylaxis ordered?: DELISA khanna and sequential ASSESSMENT AND PLAN: This is a 73 YO M with history of aortic valve replacement on chronic coumadin , who presents with 1 day hematuria and urinary retention secondary to blood clots, likely caused by his chronic anticoagulation. He was seen by urology in ED, with plan for possible cystoscopy today. PLAN: 1. Hematuria: likely 2/2 anticoagulation -NPO for procedure today -Triple lumen catheter placed in ED with continuous bladder irrigation -Per urology recommendation, if concern about a clot obstructing the catheter, turn off continuous bladder irrigation and manually irrigate the bladder as needed -CT urogram unable to be done due to excessive bleeding and clots -Continue empiric antibiotic Zosyn. Although urine did not show any infection, manipulation in the bladder today may cause infection. -Continue holding Coumadin. INR today was 2.4 -H/H stable. Type and screen has been completed. Will consider transfusion if he moglobin drops below 7. 2. Hx aortic valve replacement: -Continue holding Coumadin for procedure. We'll resume tomorrow -Will recheck INR in a.m. 3. BPH: -Continue Finasteride, Tamsulosin 4. Hypothyroidism: -Continue Levothyroxine 5. History of Osteomyelitis: -Patient is currently taking care of by [facility] physicians. He is on dicloxacillin 500 mg 4 times a day for prophylaxis. Will continue home dose DVT ppx: holding DISPO: Pending procedure. VS, I&O, 24H, Fishbone Vital Signs/I&O Vital Signs Date Time Temp Pulse Resp B/P (MAP) Pulse Ox O2 Delivery O2 Flow Rate FiO2 02/26/19 18:02 97.3 69 18 129/68 (88) 95 Room Air I&O- Last 24 Hours up to 6 AM 02/26/19 06:00 Intake Total 3300 ml Output Total 66543 ml Balance -06372 ml Laboratory Data 24H LABS Laboratory Tests 2 02/26/19 05:47: Nucleated Red Blood Cells % (auto) 0.0, Prothrombin Time 25.9H, Prothromb Time International Ratio 2.39, Anion Gap 5L, Glomerular Filtration Rate > 60.0, Calcium Level 8.7L, Magnesium Level 2.0 02/26/19 06:11: Bedside Glucose (Misc Panel) 101 02/26/19 11:22: Bedside Glucose (Misc Panel) 108 CBC/BMP Laboratory Tests 02/26/19 05:47 Microbiology Microbiology 02/25/19 Urine Culture - Final, Complete GME ATTESTATION GME ATTESTATION My faculty preceptor for this patient encounter was physically present during t he encounter and was fully available. All aspects of the patient interview, examination, medical decision making process, and medical care plan development were reviewed and approved by the faculty preceptor. The faculty preceptor is aware and concurs with the plan as stated in the body of this note and will attest to such by his/her cosignature. ATTENDING NOTE Patient was seen and examined by me this morning with the residents. Agree with the above assessment and plan LULU OAKLEY MD Feb 26, 2019 18:23 MISSY AVERY MD Feb 27, 2019 10:55
[2019-02-26] MEDS ORDERED: ZOSYN 3.375 GM VIAL (J2543) As Ordered ONE (20:26)
[2019-02-26] MEDS ORDERED: dexameTHASONE 4 MG/ML 1ML VIAL (J1100) As Ordered ONE (20:46)
[2019-02-26] MEDS ORDERED: ONDANSETRON 4MG/2ML VIAL (J2405) As Ordered ONE (20:46)
[2019-02-26] MEDS ORDERED: METOCLOPRAMIDE INJ 10MG/2ML VIAL (J2765) As Ordered ONE (20:46)
[2019-02-26] MEDS ORDERED: PROPOFOL 200 MG/20 ML VIAL As Ordered ONE ×2 (20:46→21:07)
[2019-02-26] MEDS ORDERED: MIDAZOLAM INJ 2 MG/2 ML VIAL (J2250) As Ordered ONE (20:46)
[2019-02-26] MEDS ORDERED: LIDOCAINE 2% INJ 100 MG/5 ML SDV (FOR ANES.) As Ordered ONE (20:46)
[2019-02-26] MEDS ORDERED: ePHEDrine SULFATE 25 MG/5 ML(5MG/ML) SYRINGE As Ordered ONE (20:47)
[2019-02-26] MEDS ORDERED: fentaNYL 100 MCG/2 ML INJECTION (J3010) As Ordered ONE (20:47)
[2019-02-26] MEDS ORDERED: PHENYLephrine HCL 500 MCG/5 ML (100MCG/ML) SYRINGE (J2370) As Ordered ONE (20:52)
[2019-02-26] MEDS ORDERED: LR 1,000 ML IV SCH (22:00)
[2019-02-26] MEDS ORDERED: METOCLOPRAMIDE INJ 10MG/2ML VIAL (J2765) IV PRN (22:00)
[2019-02-26] MEDS ORDERED: PERCOCET 5MG/325MG TAB PO PRN (22:00)
[2019-02-26] MEDS ORDERED: ONDANSETRON 4MG/2ML VIAL (J2405) IV PRN (22:00)
[2019-02-26] MEDS ORDERED: fentaNYL 100 MCG/2 ML INJECTION (J3010) IV PRN (22:00)
[2019-02-26] MEDS: METOPROLOL SUCC (TopROL XL) 50MG **XL** TAB PO SCH (23:20)
[2019-02-26] MEDS: ACETAMINOPHEN TAB 650MG DOSE (2X325MG) PO PRN (23:21)
[2019-02-27] VITALS: BP 130/80
[2019-02-27 01:00] VITALS: BP 125/70
[2019-02-27 02:00] VITALS: BP 124/67
[2019-02-27 03:00] VITALS: BP 124/65
[2019-02-27] MEDS: LEVOTHYROXINE 25MCG TABLET (0.025MG) PO SCH (05:42)
[2019-02-27] MEDS: LEVOTHYROXINE 100MCG TABLET (0.1MG) PO SCH (05:42)
[2019-02-27] MEDS: ACETAMINOPHEN TAB 650MG DOSE (2X325MG) PO PRN (05:50)
[2019-02-27 06:00] VITALS: BP 103/58
[2019-02-27 06:07] LABS: HEMATOCRIT 31.6 % (42.0-52.0); HEMOGLOBIN 10.5 g/dl (13.5-17.5); MEAN CORPUSCULAR HEMOGLOBIN 31.6 pg (27.0-33.0); MEAN CORPUSCULAR HGB CONC 33.2 g/dl (32.0-36.5); MEAN CORPUSCULAR VOLUME 95.2 fl (80.0-96.0); PLATELET COUNT, AUTOMATED 153 10^3/uL (150-450); RED BLOOD COUNT 3.32 10^6/uL (4.30-6.10); WHITE BLOOD COUNT 8.7 10^3/uL (4.0-10.0)
[2019-02-27 06:20] LABS: INR 2.01; PROTHROMBIN TIME 22.5 SECONDS (11.8-14.0)
[2019-02-27 06:29] LABS: CALCIUM LEVEL 8.1 MG/DL (8.8-10.2); CREATININE FOR GFR 1.34 MG/DL (0.70-1.30); GLOMERULAR FILTRATION RATE 55.8 (>42); POTASSIUM SERUM 3.9 MEQ/L (3.5-5.1)
[2019-02-27] MEDS: DICLOXACILLIN 250 MG CAP PO SCH ×2 (08:35→12:42)
[2019-02-27] MEDS: DOCUSATE SODIUM 100 MG CAP PO SCH (08:35)
[2019-02-27] MEDS: MULTIVITAMINS/MINERALS THERAP 1 TAB PO SCH (08:35)
[2019-02-27] MEDS: TAMSULOSIN 0.4 MG CAP PO SCH (08:36)
[2019-02-27] MEDS: FINASTERIDE 5 MG TAB PO SCH (08:36)
[2019-02-27 10:00] VITALS: BP 121/65
--- NOTE | 2019-02-27 11:57 | DS.PDOC ---
Discharge Summary General Date of Admission Feb 25, 2019 at 17:48 Date of Discharge February 27, 2019 Attending Physician: MISSY AVERY MD Specialist/Consultants Involve: GISSELL VASQUEZ MD Discharge Summary PROCEDURES PERFORMED DURING STAY: Cystoscopy ADMITTING DIAGNOSES: 1. Gross hematuria DISCHARGE DIAGNOSES: 1. Gross hematuria and clot retention COMPLICATIONS/CHIEF COMPLAINT: UTI. HISTORY OF PRESENT ILLNESS: Qamar De León is a 73 YO M with H aortic valve replacement on coumadin, AF s/p pacemaker/AICD, who presents with 1 day hematuria. He first noticed blood in his urine last night prior to going to bed around 9pm. At that time, his urine was bright red. This morning he continued to have hematuria and had difficulty urinating due to clots that he was unable to pass, causing him to retain urine. He states that this happened almost 3-4 weeks ago where he had bloody urine, passed some clots, and it went away on its own. He did not seek medical treatment at that time. He has been on Coumadin since his aortic valve replacement in 1997 and his INR checks are managed by his bundles hanger in [place]. Recently he was found to have INR of 3.2 and his Coumadin dose was increased. Otherwise, he has been in good state of health recently, has been taking all his medication as prescribed, has not been sick or has not had any sick contacts. HOSPITAL COURSE: Patient was admitted after greater than 24 hours gross hematuria and urinary retention. He also complained of lower abdominal/suprapubic pain and pressure, likely secondary to urinary retention. He was seen by urology in the ED, who determined that he would need a cystoscopy with plan to cauterize any active bleeds. Coumadin was held due to active bleed and INR was trended over this time. On hospital day 2, the patient had a cystoscopy where was found that he was not actively bleeding and clots were removed and bladder irrigated at this time. The patient was discharged on hospi jonathan day 3 with plan to restart Coumadin the following morning, get INR checked 3 days later. . He was also discharged with urinary catheter and told to return to ED should he notice worsening gross hematuria or hypertension. He will follow-up outpatient in the urology office. DISCHARGE MEDICATIONS: Please see below. ALLERGIES: Please see below. PHYSICAL EXAMINATION ON DISCHARGE: VITAL SIGNS: Please see below. GENERAL APPEARANCE: Laying in bed, appears stated age, no acute distress, calm, cooperative HEENT: EOMI, PERRLA, neck is supple with no thyromegaly or lymphadenopathy RESPIRATORY: Lungs are clear to auscultation bilaterally with no adventitious breath sounds appreciated CARDIOVASCULAR: no JVD, RRR,no murmurs/rubs/gallops, mechanical aortic valve can be auscultated in the right upper sternal border ABDOMEN: Slightly tender to palpation in the suprapubic region, no masses or organomegaly, bowel sounds are present and are normal EXTREMITIES: no clubbing, cyanosis or edema noted NEUROLOGICAL: No obvious focal deficits PSYCHIATRIC: normal mood/affect Skin: No rashes or ulcers, some telangiectasias on face LN: No significant cervical or inguinal lymphadenopathy LABORATORY DATA: Please see below. IMAGING: none PROGNOSIS: Fair ACTIVITY: [As tolerated]. DIET: As tolerated DISCHARGE PLAN: INR check on March 02 and follow-up outpatient urology DISPOSITION: . DISCHARGE INSTRUCTIONS: 1. Please have INR checked on March 02 ITEMS TO FOLLOWUP ON ON OUTPATIENT: 1. Catheter, urology outpatient DISCHARGE CONDITION: [Stable]. TIME SPENT ON DISCHARGE: Greater than 30 minutes. Vital Signs/I&Os Vital Signs Date Time Temp Pulse Resp B/P (MAP) Pulse Ox O2 Delivery O2 Flow Rate FiO2 02/27/19 10:00 97.4 70 18 121/65 (83) 97 Room Air I&O- Last 24 Hours up to 6 AM 02/27/19 06:00 Intake Total 1350 ml Output Total 1150 ml Balance 200 ml Laboratory Data Labs 24H Laboratory Tests 2 02/26/19 16:49: Bedside Glucose (Misc Panel) 91 02/27/19 05:36: Nucleated Red Blood Cells % (auto) 0.0, Prothrombin Time 22.5H, Prothromb Time International Ratio 2.01, Anion Gap 8, Glomerular Filtration Rate 55.8, Calcium Level 8.1L CBC/BMP Laboratory Tests 02/27/19 05:36 FSBS Laboratory Tests Test 02/26/19 16:49 Range/Units Bedside Glucose (Misc Panel) 91 83-110 MG/DL Microbiology Microbiology 02/25/19 Urine Culture - Final, Complete Discharge Medications Scheduled Dicloxacillin Sodium (Dicloxacillin Sodium) 500 Mg Capsule, 500 MG PO QID, (Reported) Fexofenadine HCl (Fexofenadine HCl) 180 Mg Tablet, 180 MG PO DAILY, (Reported) Finasteride (Finasteride) 5 Mg Tablet, 5 MG PO DAILY, (Reported) Gluc Amaro/Chondro Amaro A/Vit C/Mn (Glucosamine Chondroitin Tab) 1 Each Tablet, 1 TAB PO DAILY, (Reported) Levothyroxine Sodium (Levothyroxine Sodium) 200 Mcg Tablet, 200 MCG PO DAILY, (Reported) TOTAL DOSE 225MCG Levothyroxine Sodium (Levothyroxine Sodium) 25 Mcg Tablet, 25 MCG PO DAILY, (Reported) TOTAL DOSE 25MCG Metoprolol Succinate (Metoprolol Succinate) 50 Mg Tab.er.24h, 50 MG PO QHS, (Reported) Multivitamins (Thera M Plus Tablet) 1 Each Tablet, 1 TAB PO DAILY, (Reported) Nitrofurantoin Monohyd/M-Cryst (Nitrofurantoin Gallia-Mcr 100 mg) 100 Mg Capsule, 1 CAP PO BID Tamsulosin Hcl (Tamsulosin HCl) 0.4 Mg Capsule, 0.8 MG PO DAILY, (Reported) Warfarin Sodium (Warfarin Sodium) 5 Mg Tablet, 15 MG PO QWEEK, (Reported) SATURDAY EVENINGS Warfarin Sodium (Warfarin Sodium) 5 Mg Tablet, 12.5 MG PO 6XWK, (Reported) SUN/MON/E/SAT//SAT AT 1700 Scheduled PRN Acetaminophen/Diphenhydramine (Acetaminophen Pm Caplet) 1 Each Tablet, 2 TAB PO QHS PRN for PAIN, (Reported) Allergies Coded Allergies: No Known Allergies (Unverified , 02/25/19) GME ATTESTATION [facility] ATTESTATION My faculty preceptor for this patient encounter was physically present during the encounter and was fully available. All aspects of the patient interview, examination, medical decision making process, and medical care plan development were reviewed and approved by the faculty preceptor. The faculty preceptor is aware and concurs with the plan as stated in the body of this note and will attest to such by his/her cosignature. GME ATTESTATION E ATTESTATION My faculty preceptor for this patient encounter was physically present during the encounter and was fully available. All aspects of the patient interview, examination, medical decision making process, and medical care plan development were reviewed and approved by the faculty preceptor. The faculty preceptor is aware and concurs with the plan as stated in the body of this note and will attest to such by his/her cosignature. ATTENDING NOTE Patient was seen and examined by me this morning with the residents. Agree with the above assessment and plan LULU OAKLEY MD Feb 27, 2019 11:57 MISSY AVERY MD Feb 27, 2019 13:50
[2019-02-27] MEDS ORDERED: NITR100C2 PO (12:08)
--- NOTE | 2019-02-27 12:12 | IPNPDOC ---
Subjective Review oF Systems Chief Complaint The patient is a 73-year-old male admitted with a reason for visit of UTI. Events since Last Encounter No acute events o/n. Still having intermittent bladder spasms. His catheter has drained well o/n w/o need for irrigation. Objective Physical Examination General Exam: Alert, Cooperative, No Acute Distress Psych Exam: Mental status NL, Mood NL Other physical findings catheter in place, draining light pink urine Vital Signs/I&O Vital Signs Date Time Temp Pulse Resp B/P (MAP) Pulse Ox O2 Delivery O2 Flow Rate FiO2 02/27/19 10:00 97.4 70 18 121/65 (83) 97 Room Air I&O- Last 24 Hours up to 6 AM 02/27/19 06:00 Intake Total 1350 ml Output Total 1150 ml Balance 200 ml Laboratory Data Labs 24H Laboratory Tests 2 02/26/19 16:49: Bedside Glucose (Misc Panel) 91 02/27/19 05:36: Nucleated Red Blood Cells % (auto) 0.0, Prothrombin Time 22.5H, Prothromb Time International Ratio 2.01, Anion Gap 8, Glomerular Filtration Rate 55.8, Calcium Level 8.1L CBC/BMP Laboratory Tests 02/27/19 05:36 FSBS Laboratory Tests Test 02/26/19 16:49 Range/Units Bedside Glucose (Misc Panel) 91 83-110 MG/DL Microbiology Microbiology 02/25/19 Urine Culture - Final, Complete Assessment/Plan Date Seen The patient was seen on 02/27/19. Patient Summary This is a 73 y/o M w/ gross hematuria and clot retention POD1 s/p cysto, clot evacuation, button plasma vaporization of the prostate. There was no active bleeding at the time of cysto, but given the very vascular prostate seen, it is likely that the prostate was the source. His catheter has drained well since surgery and his urine is light pink. Plan/VTE VTE Prophylaxis Ordered?: Yes VTE Exclusion Mechanical Proph: N/A:VTE Prophy Ordered VTE Exclusion Pharmacological: Active Bleeding Plan/Urinary Catheter Reason for insertion/continuin: Acute obstruct/retention Plan - ok for discharge home from urologic standpoint - can resume anticoagulation tomorrow - will defer to his bi architect what to start him on - will arrange f/u for him to be seen in urology clinic next week for catheter removal and voiding trial GISSELL VASQUEZ MD Feb 27, 2019 12:12
[2019-02-27] MEDS ORDERED: WARFARIN SOD 5 MG TAB PO SCH ×2 (17:00)
[2019-02-28] MEDS ORDERED: WARFARIN SOD 5 MG TAB PO SCH (17:00)
--- NOTE | 2019-03-04 08:58 | RO ---
DATE OF PROCEDURE: 02/26/2019 PREPROCEDURE DIAGNOSIS: Gross hematuria. POSTPROCEDURE DIAGNOSIS: Gross hematuria, benign prostatic hyperplasia. PROCEDURE: Cystoscopy, PlasmaButton transurethral electrovaporization of the prostate, clot evacuation. SURGEON: Dr. Mayito Ritchie GED TEACHER: None. ANESTHESIA: General. OPERATIVE INDICATIONS: This is a 73-year-old male who came in with gross hematuria and clot retention. Due to significant hematuria, it was recommended he be brought to the operating room today to investigate the cause and cauterize it. DESCRIPTION OF PROCEDURE: The patient was brought to the operating room and general anesthesia was induced. Prophylactic antibiotics were infused. He was then placed in dorsal lithotomy position and prepped and draped in the usual sterile fashion. At this point, a resectoscope was inserted into the urethral meatus and advanced to the bladder using a visual obturator. Of note, there was a large amount of clots inside the bladder. These clots were removed using a Urovac bladder evacuator. Once all the clots had been removed from the bladder, the bladder was thoroughly examined. It was moderately trabeculated. There were no bladder tumors. There was no active bleeding inside the bladder. Bilateral ureteral orifices were orthoptic and both effluxed clear urine. At this point, I withdrew the resectoscope into the prostate and of note it appeared that he had previously had a transurethral resection of the prostate (TURP), but he had regrowth of lateral lobes as well as the median lobe. His prostate was extremely vascular. There was no active bleeding inside the prostate, but considering the vascularity of the prostate I suspect that was the cause of his hematuria. At this point, I made the decision to use a PlasmaButton to vaporize the regrowth of the prostate tissue and once the prostate was widely patent I used the coagulation current to thoroughly cauterize inside of the prostate. Once satisfied with hemostasis, this marked the conclusion of the procedure. Of note, I made sure not to vaporize close to the ureteral orifices or distal to the verumontanum during the procedure. Once done, the resectoscope was removed and an 18 Chadian Veloz catheter was inserted into the bladder. The balloon was filled with 15 mL of sterile water and the catheter was connected to gravity drainage. This marked the conclusion of the procedure. The patient was then taken out of the dorsal lithotomy position, awakened from anesthesia and transferred to the recovery room in stable condition. Estimated blood loss: 10 mL. Complications: None. Specimen: None. Plan: The patient's catheter will be kept in for at least 1 week. Of note, because he has a mechanical heart valve, we will try to get him to resume on his anticoagulation tomorrow. VIDHYA
== END 2019-02-27 13:50 | disposition home or self-care (01) | DRG 813 ==
LOC: M ED 13:45 → M ED INP 17:48 → M MSPAV 19:04
PROVIDERS: ADMIT Internal Medicine; ATTEND Internal Medicine
PROC: 0TCD8ZZ Extirpation of Matter from Urethra, Via Natural or Artificial Opening Endoscopic (ICD-10-PCS; 2019-02-26)
PROC: 0TJB8ZZ Inspection of Bladder, Via Natural or Artificial Opening Endoscopic (ICD-10-PCS; principal; 2019-02-26 17:00)
DX: D68.32 Hemorrhagic disorder due to extrinsic circulating anticoagulants (principal); M86.60 Other chronic osteomyelitis, unspecified site; T45.515A Adverse effect of anticoagulants, initial encounter; R31.0 Gross hematuria; Z95.2 Presence of prosthetic heart valve; Z95.0 Presence of cardiac pacemaker; R33.9 Retention of urine, unspecified; Z79.899 Other long term (current) drug therapy; E03.9 Hypothyroidism, unspecified; I48.91 Unspecified atrial fibrillation; Z87.891 Personal history of nicotine dependence; N40.0 Benign prostatic hyperplasia without lower urinary tract symptoms; Z79.01 Long term (current) use of anticoagulants

== ENCOUNTER → 2019-03-12 | Outpatient (CLI) | payer MEDICARE ==
[~2019-03-12] MED LIST changes: +ISOVUE-370 76% 100ML VIAL (Q9967) As Ordered ONE
--- NOTE | 2019-03-12 15:41 | REP ---
Clinical: Gross hematuria. Technique: Axial precontrast, contrast enhanced, and delayed images of the abdomen and pelvis using 100 ml Isovue 370 intravenous contrast material with coronal and sagittal re-formations. Findings: Simple 2.7 cm left renal cyst is appreciated. No nephrolithiasis or cystic mass lesion is appreciated. Bladder demonstrates wall thickening with surrounding stranding and possible mass at the base of the bladder which may or may not be related to the enlarged prostate gland. Liver, spleen, pancreas, and bilateral adrenal glands are normal. Evidence of prior cholecystectomy. The enteric system is without obstruction or acute inflammatory process. Colonic diverticulosis noted without acute diverticulitis. Normal terminal ileum identified in the right lower quadrant. No ascites. No free air. No adenopathy. Atherosclerotic changes to the aorta noted without aneurysm or dissection. Musculoskeletal structures demonstrate degenerative changes without focal abnormality. Lung bases are essentially clear. Impression: 1. Bladder wall thickening with surrounding stranding along with possible bladder mass versus enlarged prostate gland. Further investigation is recommended. 2. 2.7 cm simple left renal cyst. Kidneys and ureters are otherwise normal. 3. Diverticulosis. Electronically Signed by Karel Pérez MD 03/12/2019 03:33 P
== END ==
LOC: M RAD 14:29
PROVIDERS: ATTEND Nurse Practitioner Family
DX: N32.9 Bladder disorder, unspecified (principal); R31.0 Gross hematuria; N28.1 Cyst of kidney, acquired; K57.30 Diverticulosis of large intestine without perforation or abscess without bleeding
CPT/HCPCS: 74178; Q9967

== ENCOUNTER → 2019-03-17 | Outpatient (REF) | payer MEDICARE ==
[~2019-03-17] MED LIST changes: -ISOVUE-370 76% 100ML VIAL (Q9967) As Ordered ONE
[2019-03-17 18:11] LABS: APPEARANCE, URINE CLOUDY (CLEAR); BACTERIA, URINE AUTO 1+ (NEGATIVE); BILIRUBIN, URINE AUTO NEGATIVE (NEGATIVE); BLOOD, URINE BLOOD 3+ (NEGATIVE); COLOR, URINE RED (YELLOW); GLUCOSE, URINE (UA) AUTO NEGATIVE (NEGATIVE); KETONE, URINE AUTO NEGATIVE (NEGATIVE); LEUKOCYTE ESTERASE, URINE AUTO TRACE (NEGATIVE); NITRITE, URINE AUTO NEGATIVE (NEGATIVE); PROTEIN, URINE AUTO 2+ mg/dL (NEGATIVE); RBC, URINE AUTO TNTC /HPF (0-3); SPECIFIC GRAVITY URINE AUTO 1.008 (1.002-1.035); SQUAMOUS EPITHELIAL CELL UR AU 0 /HPF (0-6); UROBILINOGEN, URINE AUTO 0.2 mg/dL (0.0-2.0); WBC, URINE AUTO 28 /HPF (0-3)
== END ==
LOC: M SMT 17:02
PROVIDERS: ATTEND Nurse Practitioner Family
DX: N40.1 Benign prostatic hyperplasia with lower urinary tract symptoms (principal)
CPT/HCPCS: 51702; 51798; 81001; 87086; G0463